=== PATIENT | female | born 1970 | race Caucasian/White ===

== ENCOUNTER 2017-03-19 14:21 | Emergency (ER) | payer SELFPAY ==
[2017-03-19 14:39] VITALS: TEMP 98.4
--- NOTE | 2017-03-19 14:50 | PCM.RRT ---
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 absent: Rales, Rhonchi, Wheezes, Respiratory Distress, Stridor - Cardiovascular Exam Cardiovascular Exam: REGULAR RHYTHM, RRR. absent: Gallop, Rubs, Murmur - GI/Abdominal Exam GI & Abdominal Exam: Soft, Normal Bowel Sounds - Neurological Exam Neurological Exam: Alert, Awake, Oriented x3 - Extremities Exam Extremities Exam: Full ROM, Normal Inspection. absent: Pedal Edema Plan - Assessment of Findings&Treatment Plan Rapid Response called at 1:51 after patient received 98ml of IV contrast for an abdominal/pelvis CT when she started to feel burning in her throat and had one episode of vomiting. Patient had one hive above her top lip on the left. Patient had no shortness of breath, chest pain, or itching. Patient's blood pressure was 122/83, P:81, and 02 100% on room air. Patient given Benadryl 25mg IV, Solucortef 100 mg IV, and Epinephrine .6mg IM. Patient no longer felt nauseous after her episode of vomiting. Patient's vital signs after medications given was blood pressure : 137/80, P: 78, 02:100 % RA. Patient transferred to ED for observation.
[2017-03-19 15:50] VITALS: BP 99/57; PULSE 73; RESP 18
[2017-03-19 15:57] VITALS: O2SAT 98
--- NOTE | 2017-03-19 15:57 | C.PDOC ---
History Of Present Illness 46 year old female was brought to the ED from CT department where she was scheduled to have a scan of lumbar spine with contrast. Patient states she has never had a reaction to dye before and states she was told there would be a burning sensation in her mouth. She notes she felt a lot of burning, began feeling nauseous, and began to vomit. Patient also broke out in hives on her face. She was given Benadryl and Solumedrol which helped resolve her symptoms. Patient was sent to ED for observation. She denies chest tightness, wheezing, mouth or lip swelling, or difficulty breathing. Time Seen by Provider: 03/19/17 14:39 Chief Complaint (Nursing): Allergic Reaction History Per: Patient History/Exam Limitations: no limitations Onset/Duration Of Symptoms: Hrs Current Symptoms Are (Timing): Better Associated Symptoms: Skin Rash. denies: Trouble Swallowing, Dizziness, Redness , Chest Pain Home/EMS Treatment: Benadryl (in CT ) Recent travel outside of the [place]: No Additional History Per: Prior Records (from CT ) Past Medical History Reviewed: Historical Data, Nursing Documentation, Vital Signs Vital Signs: Last Vital Signs Temp 98.4 F 03/19/17 14:38 Pulse 73 03/19/17 15:49 Resp 18 03/19/17 15:49 BP 99/57 L 03/19/17 15:49 Pulse Ox 98 03/19/17 16:08 Surgical History: Hernia Repair, Family History: States: Unknown Family Hx - Social History Hx Tobacco Use: No Hx Alcohol Use: No Hx Substance Use: No - Immunization History Hx Tetanus Toxoid Vaccination: No Hx Influenza Vaccination: No Hx Pneumococcal Vaccination: No Review Of Systems Constitutional: Negative for: Fever, Chills ENT: Negative for: Mouth Swelling, Throat Swelling Cardiovascular: Negative for: Chest Pain Respiratory: Negative for: Cough, Shortness of Breath Gastrointestinal: Positive for: Nausea, Vomiting Skin: Positive for: Rash Physical Exam - Physical Exam Appears: Non-toxic, No Acute Distress Skin: Warm, Dry, Rash (urticaric rash on face ) Head: Atraumatic Eye(s): bilateral: Normal Inspection, PERRL, EOMI Oral Mucosa: Moist Tongue: Normal Appearing, No Swelling Lips: Normal Appearing, No Swelling Throat: Normal, No Erythema, No Exudate, No Drooling Neck: Supple Chest: Symmetrical, No Deformity, Other (no spasms) Cardiovascular: Rhythm Regular, No Murmur Respiratory: Normal Breath Sounds, No Rales, No Rhonchi, No Wheezing Gastrointestinal/Abdominal: Soft, No Tenderness, No Distention, No Guarding, No Rebound ED Course And Treatment O2 Sat by Pulse Oximetry: 98 (room air ) Pulse Ox Interpretation: Normal Reevaluation Time: 16:08 Reassessment Condition: Improved Disposition Counseled Patient/Family Regarding: Diagnosis, Need For Followup, Rx Given - Disposition Referrals: Donnie Medina MD [Medical Doctor] - Disposition: HOME/ ROUTINE Disposition Time: 16:09 Condition: IMPROVED Additional Instructions: Take Benadryl 1-2 tablets every 6 hours for the next 3 days. Prescriptions: Prednisone 50 mg PO DAILY #3 tablet Forms: [email or web address] (Argentine) - Clinical Impression Clinical Impression: Urticaria, Allergic reaction to contrast dye - Scribe Statement The provider has reviewed the documentation as recorded by the Scribgunnar Alexander All medical record entries made by the Jennyibgunnar were at my direction and personally dictated by me. I have reviewed the chart and agree that the record accurately reflects my personal performance of the history, physical exam, medical decision making, and the department course for this patient. I have also personally directed, reviewed, and agree with the discharge instructions and disposition.
== END 2017-03-19 16:19 | disposition home or self-care (01) ==
LOC: C.ER 14:21
DX: L50.0 Allergic urticaria (principal); T50.8X5A Adverse effect of diagnostic agents, initial encounter

== ENCOUNTER 2017-09-12 09:33 | Day surgery (SDC) | payer OTHER ==
[2017-08-21 08:32] VITALS: BMI 24.1
[2017-09-12] MEDS ORDERED: Lidocaine 2% Jelly (Uro-Jet) ONE (11:57)
[2017-09-12] MEDS ORDERED: Midazolam 2 MG/2 ML VIAL ONE (12:01)
[2017-09-12] MEDS ORDERED: Propofol 10 mg/ml Inj (20 ML) ONE (12:01)
[2017-09-12] MEDS ORDERED: HYDROmorphone 0.5 mg/0.5 ml ISec IVP PRN (12:33)
[2017-09-12] MEDS ORDERED: Lactated Ringer's 1,000 ML IV ONE (12:35)
[2017-09-12 13:55] VITALS: BP 115/68; RESP 18
[2017-09-12 14:38] VITALS: PULSE 73; TEMP 97.7; O2SAT 97
--- NOTE | 2017-09-14 21:44 | PCM.SURG1 ---
Surgeon's Initial Post Op Note - Surgeon's Notes Surgeon: Padilla Roberto Security Alarm Installer: none Type of Anesthesia: IV Sedation Pre-Operative Diagnosis: microhematuria. pyuria. thickened bladder Operative Findings: cystitis. BN polyps. enlarged uterus Post-Operative Diagnosis: same Operation Performed: cystoscopy. bladder bx and fulguration. bnladder neck/ urethral bx and fulguration. EUA Specimen/Specimens Removed: urine. bladder bx. bn/urethral bx Estimated Blood Loss: EBL {In ML}: 0 Blood Products Given: N/A, Autologous (Cell Saver) Post-Op Condition: Good Date of Surgery/Procedure: 09/12/17 Time of Surgery/Procedure: 12:15
--- NOTE | 2017-09-15 06:01 | OP ---
PROCEDURE DATE: 09/12/2017 UROLOGY OPERATIVE REPORT PREOPERATIVE DIAGNOSES: Thickened bladder wall, pyuria, microhematuria. POSTOPERATIVE DIAGNOSES: Thickened bladder wall, pyuria, microhematuria. Cystitis. Trigonitis. Bladder neck polyp. Enlarged uterus. OPERATING SURGEON: Cynthia Roberto MD PROCEDURE: Cystoscopy. Bladder biopsy and fulguration. Bladder neck biopsy and fulguration. Exam under anesthesia. DESCRIPTION OF PROCEDURE: Procedure as follows: The patient was placed in lithotomy position. Genitalia prepped and draped sterilely. Perioperative antibiotics were administered. Sedation was provided by the anesthesiologist. A 22-[place] cystoscope sheath was introduced using the obturator. Urine was drained from the bladder. There was approximately 50 mL of urine in the bladder. Urine was sent for bacteriologic examination. The urethra and bladder were inspected with 30-degree and 70-degree lenses. FINDINGS: There was mild bladder trabeculation. There was no bladder tumor. There was no bladder stone. There was no urethral stenosis. The trigone demonstrated moderate inflammation. The bladder demonstrated diffuse moderate inflammation as well. There was more intense inflammation on the trigone. There was squamous metaplasia of the trigone. There was elevated inflammatory mucosal changes on the trigone as well. The ureteral orifices were normal in position and shape. There was no bladder diverticulum. There was no papillary bladder tumors. There was no bladder stone. The area of the more abnormal bladder mucosa on the trigone was biopsied using cold cup biopsy forceps. Two front desk representative biopsies were obtained. Fulguration was performed with Ball electrode and electrocautery. Hemostasis was complete. There were noted to be additional mucosal changes at the bladder neck and the proximal urethra. There were inflammatory changes as well as bladder neck polyps. A front desk representative biopsy was performed. Fulguration was performed. Hemostasis was complete. The bladder was reinspected with 70-degree lens to confirm the above findings. The bladder was then drained. Cystoscope sheath removed. The exam under anesthesia was performed. There was noted be uterine enlargement. There was no adnexal mass. There was no pelvic fixation. The patient tolerated the procedure without complication. The patient returned to the supine position. The patient was transferred to the PACU in satisfactory condition. Cynthia Roberto MD [facility] # [id number]
== END 2017-09-12 14:23 | disposition home or self-care (01) ==
LOC: C.SDS 09:33
PROVIDERS: ATTEND Urology
DX: N30.81 Other cystitis with hematuria (principal); Z91.041 Radiographic dye allergy status; N30.31 Trigonitis with hematuria; D41.4 Neoplasm of uncertain behavior of bladder; N85.2 Hypertrophy of uterus; F17.200 Nicotine dependence, unspecified, uncomplicated
CPT/HCPCS: 52204; 87086; 88305; J7120

== ENCOUNTER 2017-12-16 08:12 | Inpatient (IN) | payer OTHER ==
[2017-08-21 08:32] VITALS: BMI 24.1
[2017-12-16] MEDS ORDERED: Midazolam 2 MG/2 ML VIAL ONE ×2 (09:47→10:25)
[2017-12-16] MEDS ORDERED: cefOXitin IV 1 gm in Dextrose 2 GM/100 ML BAG IVPB ONE (09:48)
[2017-12-16] MEDS ORDERED: Propofol 10 mg/ml Inj (20 ML) ONE (09:48)
[2017-12-16] MEDS ORDERED: Bupivacaine HCl 0.25% PF (30 ml) Inj ONE (10:21)
[2017-12-16] MEDS ORDERED: Rocuronium 10 mg/ml (5 ml) ONE (10:22)
[2017-12-16] MEDS ORDERED: Vasopressin 20 Units/ml Inj ONE (11:09)
[2017-12-16] MEDS ORDERED: Neostigmine Methylsulfate 3mg/3ml Syringe IV ONE (11:46)
[2017-12-16] MEDS ORDERED: Clindamycin 2% Vaginal Cream(40 gm) ONE (12:02)
[2017-12-16] MEDS ORDERED: Methylene Blue 10 mg/mL(10ml) IV ONE (12:07)
[2017-12-16] MEDS ORDERED: DiphenhydrAMINE 50 mg/ml Inj IVP PRN (12:20)
[2017-12-16] MEDS: HYDROmorphone 0.5 mg/0.5 ml ISec IVP PRN ×5 (12:55→13:45)
[2017-12-16] MEDS ORDERED: Sodium Chloride 0.9% 1,000 ML IV SCH (14:00)
[2017-12-16] MEDS: cefOXitin IV 1 gm in Dextrose 1 GM/50 ML BAG IVPB SCH (17:15)
[2017-12-17] MEDS: cefOXitin IV 1 gm in Dextrose 1 GM/50 ML BAG IVPB SCH ×2 (02:05→09:53)
[2017-12-17 07:19] LABS: HEMOGLOBIN 11.4 g/dL (11.0-16.0); MEAN CELL VOLUME 91.4 fL (81.0-99.0); MEAN CORPUSCULAR HEMOGLOBIN 30.5 pg (27.0-31.0); MEAN CORPUSCULAR HGB CONC 33.3 g/dL (33.0-37.0); RBC 3.75 Mil/uL (3.80-5.20); RED CELL DISTRIBUTION WIDTH 13.6 % (11.5-14.5); WHITE BLOOD COUNT 12.1 K/uL (4.8-10.8)
[2017-12-17 07:42] LABS: BLOOD UREA NITROGEN 11 mg/dL (7-17); CALCIUM 8.2 mg/dl (8.6-10.4); GFR AFRICAN-AMERICAN > 60; GFR NON-AFRICAN AMERICAN > 60
[2017-12-17 08:27] VITALS: BP 103/61; PULSE 88; RESP 18; TEMP 98.3; O2SAT 99
--- NOTE | 2017-12-17 10:44 | PCM.SURG1 ---
Surgeon's Initial Post Op Note - Surgeon's Notes Surgeon: Dr. Crowe Sports Psychologist: Brianne Mckeon Type of Anesthesia: General Endo Pre-Operative Diagnosis: enlarging fibroid uterus, chronic pelvic pain. Operative Findings: uterus approx 8cm in size with multiple fibroids, largest approx 8 cm. Right ovarian cyst, left paratubal cyst. Otherwise normal anatomy Post-Operative Diagnosis: fibroid uterus, right ovarian cysts, left paratubal cyst Operation Performed: total laparoscopic hysterectomy, bilateral salpingectomy, right oophorectomy, cystoscopy. Specimen/Specimens Removed: uterus with cervix, bilateral fallopian tubes, right ovary Estimated Blood Loss: EBL {In ML}: 50 Blood Products Given: N/A Drains Used: No Drains Post-Op Condition: Good Date of Surgery/Procedure: 12/16/17 Time of Surgery/Procedure: 10:45
--- NOTE | 2017-12-17 15:17 | CP.PCM.PN ---
Subjective - Date & Time of Evaluation Date of Evaluation: 12/17/17 Time of Evaluation: 08:30 - Subjective Subjective: Patient denies any acute complaints. Pain is well controlled. Denies nausea, vomiting or any other acute complaints. Objective - Vital Signs/Intake and Output Vital Signs (last 24 hours): Temp Pulse Resp BP Pulse Ox 98.3 F 88 18 103/61 99 12/17/17 08:00 12/17/17 08:00 12/17/17 08:00 12/17/17 08:00 12/17/17 08:00 Intake and Output: 12/17/17 12/17/17 06:59 18:59 Intake Total 100 Output Total 1200 Balance -1200 100 - Medications Medications: Current Medications Acetaminophen (Tylenol 325mg Tab) 975 mg PO Q6 [facility] Last Admin: 12/17/17 12:57 Dose: 975 mg Hydromorphone HCl (Dilaudid) 2 mg PO Q4 PRN PRN Reason: Pain, severe (8-10) Hydromorphone/Sodium Chloride (Dilaudid [employer]) 6 mg IV Q4H PRN; Protocol PRN Reason: Pain, severe (8-10) Sodium Chloride (Sodium Chloride 0.9%) 1,000 mls @ 100 mls/hr IV .Q10H [facility] Ibuprofen (Motrin Tab) 800 mg PO Q8 [facility] Last Admin: 12/17/17 14:32 Dose: 800 mg Meperidine HCl (Demerol) 12.5 mg IVP Q5M PRN PRN Reason: Shivering/Rigor Ondansetron HCl (Zofran Inj) 4 mg IVP ONCE PRN PRN Reason: Nausea/Vomiting - Labs Labs: 12/17/17 07:13 12/17/17 07:13 - Constitutional Appears: Well, Non-toxic, No Acute Distress - Eye Exam Eye Exam: Normal appearance - Respiratory Exam Respiratory Exam: NORMAL BREATHING PATTERN - Cardiovascular Exam Cardiovascular Exam: REGULAR RHYTHM - GI/Abdominal Exam GI & Abdominal Exam: Soft, Normal Bowel Sounds - Exam Exam: NORMAL INSPECTION - Extremities Exam Extremities Exam: Normal Inspection - Back Exam Back Exam: NORMAL INSPECTION - Neurological Exam Neurological Exam: Alert, Awake - Psychiatric Exam Psychiatric exam: Normal Affect, Normal Mood - Skin Skin Exam: Dry, Intact, Normal Color, Warm Assessment and Plan - Assessment and Plan (Free Text) Assessment: s/p TLH, bilateral salpingectomy, right oophorectomy, cystoscopy POD #1 patient doing well Plan: Cornelius catheter will be removed Voiding trial regular diet 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
[2017-12-17] MEDS ORDERED: Midazolam 2 MG/2 ML VIAL ONE (15:59)
[2017-12-17] MEDS ORDERED: Succinylcholine Chloride 20 mg/ml Syr (5 ml) IV ONE (15:59)
[2017-12-17] MEDS ORDERED: Neostigmine Methylsulfate 3mg/3ml Syringe IV ONE (16:48)
--- NOTE | 2017-12-19 20:32 | PCM.OP ---
Operative Report - Operative Report Date of Surgery/Procedure: 12/16/17 Time of Surgery/Procedure: 10:45 Surgeon: Dr. Crowe Warping Machine Operator: Brianne Mckeon Anesthesia/Sedation: General endotracheal Pre-Operative Diagnosis: chronic pelvic pain, fibroid uterus Post-Operative Diagnosis: same Indication for Surgery: chronic pelvic pain, fibroid uterus Operative Findings: Uterus approx 9cm in size with multiple fibroids, largest approx 8cm. right fallopian tube adherent to right ovary. Normal appearing left ovary. Otherwise normal anatomy. Procedure/Operation Description: total laparoscopic hysterectomy, bilateral salpingectomy, right oophorectomy, cystoscopy. After all relevant documentation was reviewed, patient was taken to OR. She was prepped and draped in the usual fashion after general anesthesia and being placed in lithotomy position. The cervix was serially dilated and a Vcare device was placed in uterus. Attention was then placed on the abdomen. A 5 mm incision was made and a 5mm port was placed under direct visualization. Once inside the peritoneal cavity, pneumoperitoneum was achieved. Bilateral lower quadrant 5mm ports were placed under direct visualization. Attention was then placed on left adhexa were the utero-ovarian ligament was cauterized and cut. The fallopian tube was then mobilized from the mesosalpinx and the round ligament was cauterized and cut. The anterior leaf of the broad ligament was dissected down and the bladder flap was created. The posterior leaf of the broad ligament was dissected down and the uterine arteries were skelonized. The uterine artery, cardinal ligament then uterosacral ligament were serially cauterized and cut. This process was repeated on the right side but also transecting the IP ligament in order to remove the right ovary with the rest of the specimen. However, due to large fibroid, the uterosacral ligament and vaginal cuff could not be reached safely. Decision was made to proceed with vaginal colpotomy and removal of uterus. After a weighted speculum was introduced the cervix was grasped and pitressin was injected for hemostasis. A posterior copotomy was made and the bladder was dissected off the cervicovaginal juction. the utero sacral ligament wa grasped with a Heany clamp, cut and suture ligated. The colpotomy was extended circumferentially until the specimen was freed and uterus was delivered vaginally. The vaginal cuff was closed with 0-Vycril in a 2 layer closure. Laparoscopically excellent hemostasis was noted. FlowSeal was placed over vaginal cuff and no active bleeding was noted after pneumoperitoneum was evacuated. The ports were removed and the incisions were closed with 3-0 Monocryl in a subcuticular fashion. Cystoscopy was performed and an intact bladder was noted with bilateral ureteral jets noted. Cornelius catheter was replaced and vagina was packed. Excellent hemostasis was noted. Patient was then awoken from general anesthesia and taken back to recovery room in stable condition. Estimated Blood Loss: 50mL Blood Replaced: none Sponge/Instrument Count: correct x 2 Drains: none Complications: none Specimen: uterus with fibroids, cervix, bilateral fallopian tubes, right ovary Discharge & Condition: stable
== END 2017-12-17 16:20 | disposition home or self-care (01) | DRG 743 ==
LOC: C.SDS 08:12 → C.4M 13:53
PROVIDERS: ADMIT Obstetrics & Gynecology; ATTEND Obstetrics & Gynecology
PROC: 0UT04ZZ Resection of Right Ovary, Percutaneous Endoscopic Approach (ICD-10-PCS; 2017-12-16)
PROC: 0UT74ZZ Resection of Bilateral Fallopian Tubes, Percutaneous Endoscopic Approach (ICD-10-PCS; 2017-12-16)
PROC: 0TJB8ZZ Inspection of Bladder, Via Natural or Artificial Opening Endoscopic (ICD-10-PCS; 2017-12-16)
PROC: 0UT94ZZ Resection of Uterus, Percutaneous Endoscopic Approach (ICD-10-PCS; principal; 2017-12-16 09:30)
DX: D25.1 Intramural leiomyoma of uterus (principal); D25.2 Subserosal leiomyoma of uterus; N83.11 Corpus luteum cyst of right ovary; N80.0 Endometriosis of uterus; N83.8 Other noninflammatory disorders of ovary, fallopian tube and broad ligament; G89.29 Other chronic pain

== ENCOUNTER 2018-03-05 13:39 | Emergency (ER) | payer OTHER ==
[2018-03-05 13:40] VITALS: BMI 24.1
[2018-03-05 13:59] VITALS: O2SAT 99
--- NOTE | 2018-03-05 15:17 | C.PDOC ---
History Of Present Illness 47 y/o female presents to the ER complaining of right sided jaw pain and swelling which began last night. Patient states she has pain mainly in her right lower molar tooth. Patient reports that she applied warm and cold compresses on the area and she took Motrin without relief. Denies having fever and chills. Chief Complaint (Nursing): Dental Pain History Per: Patient History/Exam Limitations: no limitations Onset/Duration Of Symptoms: Days Current Symptoms Are (Timing): Still Present Severity: Moderate Past Medical History Reviewed: Historical Data, Nursing Documentation, Vital Signs Vital Signs: Last Vital Signs Temp 98.7 F 03/05/18 13:56 Pulse 78 03/05/18 13:56 Resp 18 03/05/18 13:56 BP 110/67 03/05/18 13:56 Pulse Ox 99 03/05/18 15:27 - Medical History PMH: Fractures (Left ankle) Surgical History: Hernia Repair, - [facility] Procedures INSPECTION OF BLADDER, ENDO (12/16/17) RESECTION OF BILATERAL FALLOPIAN TUBES, PERC ENDO APPROACH (12/16/17) RESECTION OF RIGHT OVARY, PERCUTANEOUS ENDOSCOPIC APPROACH (12/16/17) RESECTION OF UTERUS, PERCUTANEOUS ENDOSCOPIC APPROACH (12/16/17) Family History: States: No Known Family Hx - Social History Hx Tobacco Use: No Hx Alcohol Use: Yes Hx Substance Use: No - Immunization History Hx Tetanus Toxoid Vaccination: No Hx Influenza Vaccination: No Hx Pneumococcal Vaccination: No Review Of Systems Except As Marked, All Systems Reviewed And Found Negative. Constitutional: Negative for: Fever, Chills ENT: Positive for: Mouth Pain Physical Exam - Physical Exam Appears: Non-toxic, No Acute Distress Skin: Normal Color, Warm, Dry Head: Atraumatic, Normacephalic Eye(s): bilateral: Normal Inspection Nose: Normal Oral Mucosa: Moist Teeth: Other (tooth 32 - chipped) Gingiva: Erythema (erythema around tooth 31-32), Swelling (swelling around tooth 31-32) Neck: Supple Chest: Symmetrical Neurological/Psych: Oriented x3, Normal Speech ED Course And Treatment O2 Sat by Pulse Oximetry: 99 (RA) Pulse Ox Interpretation: Normal Medical Decision Making Medical Decision Making: Impression: Dental Abscess Plan: --Penicillin PO --Toradol IM Updates: Patient has been discharged and instructed to follow up with dentist tomorrow. Disposition - Disposition Referrals: [facility] [Outside] [facility] [Outside] [facility] [place]Outside] Disposition: HOME/ ROUTINE Condition: GOOD Additional Instructions: Follow up with your dentist tomorrow morning and take all meds as directed. Prescriptions: Ibuprofen [Motrin] 600 mg PO Q6 #20 tab oxyCODONE/Acetaminophen [Percocet 5/325 mg Tab] 1 ea PO Q4 #10 tab Penicillin VK [Penicillin VK Tab] 500 mg PO Q12 #20 tab Forms: [employer] (Sinhala), Work Excuse - Clinical Impression Clinical Impression: Dental abscess - Scribe Statement The provider has reviewed the documentation as recorded by the Jennyibe Patrizia Campos Provider Attestation: All medical record entries made by the Jennyibe were at my direction and personally dictated by me. I have reviewed the chart and agree that the record accurately reflects my personal performance of the history, physical exam, medical decision making, and the department course for this patient. I have also personally directed, reviewed, and agree with the discharge instructions and disposition.
[2018-03-05 15:39] VITALS: BP 124/69; PULSE 71; RESP 16; TEMP 98.2
== END 2018-03-05 15:25 | disposition home or self-care (01) ==
LOC: C.ER 13:39
DX: K04.7 Periapical abscess without sinus (principal)
CPT/HCPCS: 96372; 99283; J1885